=== PATIENT | female | born 1970 | race Two or more races ===

== ENCOUNTER 2025-01-14 10:00 | Day surgery (SDC) | payer MEDICAID, SELFPAY ==
--- NOTE | 2025-01-13 07:00 | EKG_ITS ---
[facility] Test Date: 2025-01-13 Pat Name: BUNNY DENT Department: Room: - Gender: Female Office Services Clerk: NORAH : 1970 Requested By: Lucie Elizalde Order Number: [id number] Reading MD: Lucie Elizalde Measurements Intervals [place] Rate: 54 P: 69 TX: 203 QRS: 51 QRSD: 92 T: 64 QT: 408 QTc: 387 Interpretive Statements SINUS BRADYCARDIA Compared to ECG 08/02/2019 12:16:03 Sinus rhythm no longer present /[id number]
[2025-01-13 07:47] VITALS: BMI 24.8
[2025-01-13 08:41] LABS: Basophils % (Auto) 1 % (0-2.5); Eosinophils # (Auto) 0.1 Thou/mm3 (0.0-0.5); Eosinophils % (Auto) 1 % (0-10); Hematocrit 39.4 % (36.0-46.0); Hemoglobin 13.9 g/dL (12.0-16.0); Immature Granulocytes % (Auto) 0 % (0-0); Immature Granulocytes Auto 0.02 Thou/mm3 (0.00-0.00); Lymphocytes # (Auto) 2.2 Thou/mm3 (1.0-4.8); Lymphocytes % (Auto) 36 % (10-50); Mean Corpuscular HGB Conc 35.3 g/dl (31.0-37.0); Mean Corpuscular Hemoglobin 31.3 pg (25.0-35.0); Mean Corpuscular Volume 89 fL (80-100); Monocytes # (Auto) 0.6 Thou/mm3 (0.0-0.8); Monocytes % (Auto) 9 % (0-12); Neutrophils # (Auto) 3.2 Thou/mm3 (1.8-7.7); Neutrophils % (Auto) 53 % (37-80); Nucleated Red Blood Cell % 0 /100 WBC (0); Platelet Count 225 Thou/mm3 (140-440); RDW Standard Deviation 41.8 fL (36.4-46.3); Red Blood Count 4.44 Miln/mm3 (4.00-5.20); White Blood Count 6.1 Thou/mm3 (3.6-11.0)
[2025-01-13 08:49] LABS: Alanine Aminotransferase 11 U/L (10-49); Albumin, Serum 4.5 gm/dL (3.5-5.0); Albumin/Globulin Ratio 1.7 (1.2-2.2); Alkaline Phosphatase 79 U/L (46-116); Anion Gap 4 (7-16); Aspartate Amino Transferase 18 U/L (0-34); BUN/Creatinine Ratio 9 Ratio (12-20); Bilirubin,Total 0.4 mg/dL (0.3-1.2); Blood Urea Nitrogen 8 mg/dL (9-23); Calcium 9.6 mg/dL (8.3-10.6); Calcium (Corrected) 9.6 mg/dL (8.5-10.1); Carbon Dioxide 29.4 mMol/L (20.0-31.0); Chloride 104 mMol/L (98-107); Creatinine (Component) 0.9 mg/dL (0.6-1.3); Estimated Creatinine Clearance 70.3 mL/min (>60); Globulin 2.6 gm/dL (2.3-3.5); Glucose 103 mg/dL (74-106); Osmolality,Calculated 272 (275-295); Potassium 4.7 mMol/L (3.4-5.1); Sodium 137 mMol/L (136-145); Total Protein 7.1 gm/dL (5.7-8.2); eGFR > 60 See Note
[2025-01-14] VITALS (8 sets, daily range): BP systolic 138–158; BP diastolic 77–96; PULSE 55–91; RESP 12–21; TEMP 36.2–36.3; O2SAT 96–99; BMI 24.9
--- NOTE | 2025-01-14 10:25 | CHAP ---
Visited with patient giving words of encouragement and prayer.
--- NOTE | 2025-01-14 11:04 | PD.SUROPNT ---
Date of Procedure 01/14/25 Pre Op Diagnosis Symptomatic cholelithiasis Post Op Diagnosis Cholelithiasis with cholecystitis Procedure Laparoscopic cholecystectomy Findings Moderately distended gallbladder with gallstones and chronic cholecystitis Procedure Description Patient was brought into the operating room in supine position. After administration of general endotracheal anesthesia abdomen was prepped and draped in standard surgical manner. A Veress needle was inserted through the umbilicus and pneumoperitoneum was obtained up to 15 mmHg. The Veress needle was then removed, a 5 mm infraumbilical incision was made and the 5mm trocar was inserted. Laparoscopic camera was placed. Under direct visualization a laparoscopic camera a 10 mm trocar was placed in subxiphoid and two 5 mm trocars placed in right upper quadrant. The gallbladder was identified and was noted to be moderately distended with gallstones and chronic cholecystitis. It was retracted cephalad and laterally. Dissection started near the infundibulum of gallbladder where cystic duct and gallbladder junction clearly identified. The cystic duct was circumferentially dissected off the peritoneum and surrounding inflammatory tissue. The critical view of safety was clearly demonstrated. Cystic duct was then divided between 2 endoclips proximally and one distally. The cystic artery was similarly dissected and divided. The gallbladder was then from the liver bed using electrocautery. The gallbladder was then placed inside an Endo Catch and removed from the abdomen utilizing subxiphoid trocar site. The area was copiously and thoroughly washed and irrigated, all the fluid was suctioned and the suction fluid returned clear. Hemostasis achieved using electrocautery. Endoclips noted be in place and intact without any bleeding or any leakage. Hemostasis was adequate and satisfactory. The subxiphoid trocar sites fascial defect was closed with 0 Vicryl using Endo Closure device. Instruments and trocars removed, pneumoperitoneum was evacuated and the incisions closed with 4-0 Monocryl in subcuticular fashion. Instrument needle and sponge counts were all reported to be correct X2. Patient tolerated the procedure well, was extubated, breathing spontaneously and without difficulty and was transferred to postanesthesia care in stable condition. Anesthesia GETA and local Pathology / specimen Other (Gallbladder and contents) Estimated Blood Loss 10 Condition Stable Disposition PACU Surgeon Lucie Elizalde MD Surgical Staff Operation Date: 01/14/25 11:00 Case Staff Anesthesiologist: Jeronimo Dow RNfinancial analyst intern: Jennifer Jacobo
--- NOTE | 2025-01-14 11:11 | SUR.PHASEI ---
pt received from OR in recovery bay 2. pt asleep but responds to voice, breathing unlabored on room air. v/s stable. pt dressing to abd dermabond x4 cdi. report received from Dr. Dow and Luiza GALICIA.
[2025-01-14] MEDS: ONDANSETRON INJ 2 MG/ML INJ 2 ML 4 MG IV (11:39)
[2025-01-14] MEDS: fentaNYL CIT INJ 50 mCg/ML AMP 2ML IV (11:40)
--- NOTE | 2025-01-14 12:20 | SUR.PHASEII ---
pt able to tolerate oral fluids without difficulty swallowing or nausea/vomiting.
--- NOTE | 2025-01-14 12:27 | SUR.PHASEII ---
pt awake and alert, breathing unlabored on room air. v/s stable. pt dressing to abd dermabond x4 cdi. pt able to ambulate to wheelchair with steady gait. d/c instructions given with Ld in room, all questions answered. pt d/c via wheelchair wtih all belongings.
== END 2025-01-14 12:27 | disposition home or self-care (01) ==
PROVIDERS: PCP Nurse Practitioner Family; Referring Provider Surgery; Visit Provider Surgery
PROC: 0FT44ZZ Resection of Gallbladder, Percutaneous Endoscopic Approach (ICD-10-PCS; CPT 47562; principal; 2025-01-14 10:45)
DX: K80.10 Calculus of gallbladder with chronic cholecystitis without obstruction (principal); Z01.810 Encounter for preprocedural cardiovascular examination
CPT/HCPCS: 47562; 36415; 80053; 85025; 93005; A4217; A4649; J0131; J0694; J1100; J2371; J2405; J2704; J2765; J3010; J3490; J1596